=== PATIENT | female | born 1985 | race Caucasian/White ===

== ENCOUNTER 2024-05-23 17:06 | Emergency (ER) | payer BC, SELFPAY ==
[2024-05-23] VITALS (7 sets, daily range): BP systolic 101–120; BP diastolic 53–89; BMI 23.9
[2024-05-23] MEDS: PEPCID 20 MG IV (17:25)
[2024-05-23] MEDS: SOLU-MEDROL PF 125 MG IV (17:25)
[2024-05-23] MEDS: BENADRYL 50 MG IV (17:26)
[2024-05-23] MEDS: ADRENALIN 0.3 MG IM (17:26)
[2024-05-23] MEDS: NSS 1000 IV (17:40)
--- NOTE | 2024-05-23 18:04 | ED.GENMED ---
History of Present Illness
<Katalina Gonzalez PA-C - Last Filed: 05/23/24 19:21>
General
Chief Complaint: Allergic Reaction
Source: patient and significant other
Exam Limitations: none
Time Seen by Provider: 05/23/24 17:17
Nursing documentation reviewed up to this point in time: agreed with
History of Present Illness
History of Present Illness:
Patient is a 38-year-old female who denies past medical history who presents to the emergency department accompanied by her for evaluation of allergic reaction. Patient reports that just prior to arrival she was working outside and got
stung by 2 ground wasps. Patient reports that she got stung on her left thigh and her left arm. Patient reports that shortly thereafter, she developed itchy red hives over her entire body associated with the feeling that her lip is swollen and
tingly. Patient denies any tongue swelling, denies any difficulty swallowing, denies any shortness of breath or difficulty breathing. Patient denies any cough or wheeze. Patient denies any abdominal pain, nausea, vomiting. Patient reports that
she took 50 mg of Benadryl at home which had 5 years ago and therefore she is unsure whether it was effective but it has not seemed to make a difference yet. Patient denies any history of similar reactions in the past. Patient denies
concern for today.
Past History
<Katalina Gonzalez PA-C - Last Filed: 05/23/24 19:21>
Past History
ED Past Medical History: None
Social History
Tobacco: Non-smoker
Alcohol: Occasional
Drug: None
Personal:
Living: with family
Review of Systems
<Katalina Gonzalez PA-C - Last Filed: 05/23/24 19:21>
Review of Systems
All Other Systems: Not applicable
Constitutional: Reports no symptoms
EENT: Reports other (lip swelling and tingling)
Respiratory: Reports no symptoms
Cardiac: Reports no symptoms
ABD/GI: Reports no symptoms
: Reports no symptoms
Musculoskeletal: Reports no symptoms
Skin: Reports other (itchy rash)
Neurological: Reports no symptoms
Endocrine: Reports no symptoms
Hematologic/Lymphatic: Reports no symptoms
Psychiatric: Reports no symptoms
Phy Exam
<Katalina Gonzalez PA-C - Last Filed: 05/23/24 19:21>
General Physical Exam
General Presentation: well appearing and no apparent distress
General Skin: warm and other (erythematous with diffuse hives, coalescing over parts of her body)
General Habitus: normal
General Mental: alert
General Hydration: appears well hydrated
ENT Exam
ENT Exam: EOMI, pharynx normal, neck supple, normocephalic and other (normal phonation, tolerating oral secretions)
Eye Exam
Eye Exam: PERRL, cornea clear and conjunctiva normal
Cardiovascular Exam
Cardiovascular Exam: regular rate/rhythm, no edema, no murmur and normal peripheral pulses
Pulmonary Exam
Pulmonary Exam: lungs clear, no respiratory distress, no rales, no crackles, no rhonchi, no stridor, no wheezing and no cough
Gastrointestinal Exam
Gastrointestinal Exam: normal bowel sounds, non tender, soft, no organomegaly, no pulsatile mass and non distended
Neurological Exam
Neurological Exam: alert, oriented x3, no motor deficits and speech normal
Musculoskeletal Exam
Musculoskeletal Exam: full ROM and no edema
Skin Exam
Skin Exam: normal color, warm/dry, no rash and no petechia
Psychiatric Exam
Psychiatric Exam: normal mood/affect
Course
<Katalina Gonzalez PA-C - Last Filed: 05/23/24 19:21>
Orders/Labs/Results
Orders:
Orders
05/23/24 17:22
Diphenhydramine [Benadryl] 50 mg IV NOW STA
EPINEPHrine PF [Adrenalin] 0.3 mg IM NOW STA
Famotidine [Pepcid] 20 mg IV NOW STA
MethylPREDNISolone PF [Solu-Medrol Pf] 125 mg IV NOW STA
05/23/24 17:23
0.9% Sodium Chloride 1000 ml [Nss] 1,000 ml IV BOLUS
Vital Signs
Initial and Last Documented VS:
Initial Vital Signs
Temp Pulse Resp BP Pulse Ox
98.6 F 89 18 120/66 97
05/23/24 17:10 05/23/24 17:10 05/23/24 17:10 05/23/24 17:10 05/23/24 17:10
Last Documented Vital Signs
Temp Pulse Resp BP Pulse Ox
97.5 F 84 20 102/63 97
05/23/24 18:18 05/23/24 20:00 05/23/24 20:00 05/23/24 20:00 05/23/24 20:00
<NONA August - Last Filed: 05/23/24 20:16>
Orders/Labs/Results
Orders:
Orders
05/23/24 17:22
Diphenhydramine [Benadryl] 50 mg IV NOW STA
EPINEPHrine PF [Adrenalin] 0.3 mg IM NOW STA
Famotidine [Pepcid] 20 mg IV NOW STA
MethylPREDNISolone PF [Solu-Medrol Pf] 125 mg IV NOW STA
05/23/24 17:23
0.9% Sodium Chloride 1000 ml [Nss] 1,000 ml IV BOLUS
Vital Signs
Initial and Last Documented VS:
Initial Vital Signs
Temp Pulse Resp BP Pulse Ox
98.6 F 89 18 120/66 97
05/23/24 17:10 05/23/24 17:10 05/23/24 17:10 05/23/24 17:10 05/23/24 17:10
Last Documented Vital Signs
Temp Pulse Resp BP Pulse Ox
97.5 F 84 20 102/63 97
05/23/24 18:18 05/23/24 20:00 05/23/24 20:00 05/23/24 20:00 05/23/24 20:00
<NONA August - Last Filed: 05/23/24 20:16>
MDM/Problems Addressed
MDM/Problems Addressed:
2000: Received signout on patient. Patient feeling much better resolvent of hives no difficulty breathing or lip or tongue swelling lungs are clear nontachypneic nonhypoxic in no acute distress stable for discharge home medication sent from
previous provider to the pharmacy.
<NONA August - Last Filed: 05/23/24 20:16>
*Critical Care Note
Total Time (30-74mins, 75-104mins- exclusive of procedures): Not Applicable
<Katalina Gonzalez PA-C - Last Filed: 05/23/24 19:21>
Update Note
Update Note:
38-year-old female presents emergency department for evaluation of diffuse itchy rash, hives, mild lip swelling and tingling that started after she got stung by 2 ground wasps. Patient denies shortness of breath or difficulty breathing, denies any
GI symptoms. On arrival, patient's vital signs are stable, she is afebrile. On exam, patient is in no acute distress however she does have a diffuse erythematous rash, her oropharynx is patent, she has normal phonation, she is tolerating oral
secretions without difficulty, her lungs are clear to auscultation bilaterally. Will treat for early anaphylaxis with epinephrine, methylprednisolone, famotidine, diphenhydramine, IV fluids, and reassess.
On reevaluation, patient reports significant improvement in her symptoms. She reports that the rash is receding and that her lip no swollen or tingly. Will observe for a total of 2 hours to ensure no rebound after the epinephrine. If patient
remains stable, anticipate she will be safe for discharge to home with prescriptions for tapering dose of prednisone, EpiPen, as well as an antihistamine Patient aware of the plan and agrees.
ED Attending Note
<Katalina Gonzalez PA-C - Last Filed: 05/23/24 19:21>
-
Portions of this chart may have been created with voice recognition software.� Occasional wrong word or��sound alike� substitutions may have occurred due to the inherent limitations of voice recognition software.
Discharge Plan
Departure
Patient Disposition: Home (Routine Discharge)
Date of Disposition: 05/23/24
Time of Disposition: 20:14
Patient with high blood pressure during this ER visit?: No
Condition: Good
Covid-19: Not Applicable
Discharge Problem:
Allergic reaction to wasp sting
Instructions: Allergic Reaction ED, Anaphylaxis - Discharge instructions
Prescriptions:
New
epinephrine 0.3 mg/0.3 mL auto-injector
0.3 ml IM Q5-15M PRN (Reason: anaphylaxis) Qty: 2 0RF
prednisone 10 mg tablet
10 mg PO DIRECTED Qty: 15 0RF
Rx Instructions:
Take 5 tabs on day 1, 4 tabs on day 2, 3 tabs on day 3, 2 tabs on day 4, and 1 tab on day 5
cetirizine 10 mg tablet
10 mg PO DAILY PRN (Reason: allergy symptoms) Qty: 10 0RF
Referrals:
Alli Fang MD [Family Provider] - Follow up in 2-3 days
Activity Restrictions/Additional Instructions:
You were seen in the emergency department for evaluation following an allergic reaction. You received epinephrine, Benadryl, steroids, and fluids with significant improvement in your symptoms. It is safe for you to be discharged home. Please take
the steroids that were prescribed exactly as directed, even if you start to feel better. Please use the EpiPen if you develop any symptoms involving your mouth, tongue, or breathing and proceed directly to the emergency department. Please
follow-up with your primary care provider to discuss your recent emergency department visit. Please return to the emergency department if you develop worsening lip or tongue swelling, difficulty swallowing, shortness of breath or difficulty
breathing, severe abdominal pain, persistent vomiting, or for any other worsening or concerning symptoms.
Interventions
Interventions:
*Risk Screen - Suicide Last Done: 05/23/24 17:10
*General Assessment Last Done: 05/23/24 17:10
*Neglect/Abuse Screening Last Done: 05/23/24 17:10
ED- Fall Risk Assessment Last Done: 05/23/24 17:20
*ED COVID-19 Vaccine History Last Done: 05/23/24 17:20
ED- Cardiac Assessment Last Done: 05/23/24 17:20
ED- Pulmonary Assessment Last Done: 05/23/24 17:20
ED-Skin Assessment Last Done: 05/23/24 17:20
Discharge Date and Time
Print Language: IVORIAN
== END 2024-05-23 20:23 | disposition home or self-care (01) ==
LOC: EMR 17:06
PROVIDERS: EMERGENCY PHYSICIAN Emergency Medicine; FAMILY PHYSICIAN Family Medicine
DX: T63.461A Toxic effect of venom of wasps, accidental (unintentional), initial encounter (principal)
CPT/HCPCS: 99284; 96374; 96375 ×2; 96372; 96361